=== PATIENT | male | born 1975 | race Two or more races ===

== ENCOUNTER 2024-09-04 21:59 | Emergency (ER) | payer SELFPAY ==
[2024-09-04 22:05] VITALS: BP 162/94; PULSE 108; TEMP 36.7; O2SAT 96; BMI 31.6
--- NOTE | 2024-09-04 22:20 | CT_ITS ---
[address] [address] Patient Name: FERNANDO PITTS MRN: [id number] date: 1975 Sex: M Assigned Patient Location: ER Current Patient Location: ER Accession/Order Number: [id number] Exam Date: 09/04/2024 22:45 Report Date: 09/04/2024 23:41 At the request of: FORREST FABIAN Procedure: CT abdomen pelvis wo con EXAMINATION:CT abdomen pelvis wo con INDICATION:LEFT SIDED ABD PAIN COMPARISON:04/26/2022 TECHNIQUE:Multiple thin section transaxial slices were acquired through the abdomen and pelvis without intravenous contrast. Coronal and sagittal reconstructed images were reviewed. Oral contrastWas not administered. FINDINGS: LOWER CHEST: The lower chest is unremarkable. LIVER: The liver is unremarkable. GALLBLADDER AND BILIARY SYSTEM: No obvious ductal dilation. There is cholelithiasis without pericholecystic edema or inflammation. SPLEEN: The spleen is unremarkable. PANCREAS: The pancreas is unremarkable. ADRENAL GLANDS: The adrenal glands are unremarkable. KIDNEYS AND URETERS: There is no hydronephrosis of the kidneys.There are punctate nonobstructive bilateral intrarenal calculi. The ureters are within normal limits without obstructing urologic calcifications. VASCULATURE: Vascularity is unremarkable. PERITONEUM/RETROPERITONEUM: Peritoneum/retroperitoneum is unremarkable. LYMPH NODES: No suspicious lymphadenopathy. GASTROINTESTINAL TRACT: The bowel is normal in caliber.There is chronic colonic diverticulosis of the colon without acute inflammation.The appendix is visualized and is not inflamed. BLADDER: The urinary bladder is unremarkable. REPRODUCTIVE SYSTEM: Reproductive system is unremarkable. BODY WALL: There is a tiny fat-containing umbilical hernia. BONES: Multilevel endplate degenerative disc disease is present in the lower thoracic and lumbar spine. CT/CT abdomen pelvis wo con IMPRESSION: 1. No acute inflammatory process or obstructive uropathy. 2. Cholelithiasis without pericholecystic edema. 3. Nonobstructive bilateral intrarenal calculi. Electronically authenticated by: FLORA INGRAM Date: 09/04/2024 23:41
[2024-09-04 22:36] LABS: Hematocrit 47.1 % (42.0-54.0); Hemoglobin 16.5 g/dL (14.0-18.0); Mean Corpuscular Hemoglobin 31.7 pg (25.9-34.0); Mean Corpuscular Volume 90.4 fL (80.0-94.0); Mean Platelet Volume 11.8 fL (9.5-13.5); Platelet Count 222 10^3/uL (150-450); Red Blood Count 5.21 10^6/uL (4.70-6.10); Red Cell Distribution Width 12.6 % (11.0-15.0); White Blood Count 18.2 10^3/uL (4.0-11.0)
[2024-09-04] MEDS: ONDANSETRON PF 4 MG/2 ML VIAL IV (22:36)
[2024-09-04] MEDS: 0.9 % SODIUM CHLORIDE 1,000 ML 1000 ML IV (22:36)
[2024-09-04 22:51] LABS: Atypical Lymphocytes Abs Man 0.18; Basophils Abs Manual 0.18 10^3/uL (0.00-0.10); Lymphocytes Absolute Manual 0.18 10^3/uL (1.20-3.80); Monocytes Absolute Manual 0.36 10^3/uL (0.30-0.80); Segmented Neut Absolute Manual 17.29 10^3/uL (1.4-6.5)
[2024-09-04 22:54] LABS: Alanine Aminotransferase 34 U/L (16-63); Albumin Globulin Ratio 1.1; Alkaline Phosphatase 73 U/L (46-116); Aspartate Amino Transferase 13 U/L (15-37); BUN Creatinine Ratio 14.4; Bilirubin Total 0.9 mg/dL (0.2-1.0); Calcium 9.1 mg/dL (8.5-10.1); Carbon Dioxide 25.1 mmol/L (21.0-32.0); Chloride 105 mmol/L (98-107); Estimated GFR (African America >60 (>=60 mL/min/1.73m^2); Estimated GFR (Non-African Ame >60 (>=60 mL/min/1.73m^2); Globulin 3.7 g/dL; Glucose 183 mg/dL (74-106); Potassium 4.1 mmol/L (3.5-5.1); Sodium 141 mmol/L (136-145); Total Protein 7.7 g/dL (6.4-8.2)
[2024-09-04 23:45] VITALS: BP 145/79; PULSE 90; O2SAT 94
[2024-09-04 23:56] LABS: Bilirubin Urine NEGATIVE (NEGATIVE); Blood Urine SMALL (NEGATIVE); Clarity Urine CLEAR (CLEAR); Color Urine YELLOW (YELLOW); Glucose Urine UA NEGATIVE (NEGATIVE); Ketones Urine NEGATIVE (NEGATIVE); Leukocyte Esterase Urine NEGATIVE (NEGATIVE); Nitrite Urine NEGATIVE (NEGATIVE); Protein Urine NEGATIVE (NEG/TRACE); Specific Gravity Urine >=1.030 (1.005-1.025); Urine Microscopic Indicated YES; Urobilinogen Urine 0.2 EU/dL (0.2-1.0)
[2024-09-05 00:04] LABS: Bacteria Urine NONE SEEN #/HPF (NONE SEEN); Mucus Urine SMALL (NONE SEEN); RBC Urine 0-2 #/HPF (0-2); Squamous Epithelial Cell Urine NONE SEEN #/LPF (NONE/RARE); WBC Urine 0-2 #/HPF (NONE SEEN)
[2024-09-05 00:05] LABS: Cast Seen? NONE SEEN #/LPF (NONE SEEN); Crystals Seen? None Seen #/HPF (None Seen); Urine Culture Indicated NO
--- NOTE | 2024-09-05 00:54 | ED.GENADUL1 ---
HPI HPI - General Adult General Chief complaint: Nausea/Vomiting/Diarrhea Stated complaint: Flu Time Seen by Provider: 09/04/24 22:14 Source: patient and family Mode of arrival: walk-in Limitations: language barrier History of Present Illness HPI narrative: Patient presents with chief complaint of vomiting and diarrhea today. He states he has vomited more than 5 times and has had diarrheal stools more than 5 times. He denies chills or fever. Related Data Previous Rx's ?Medication ?Instructions ?Recorded ondansetron 4 mg disintegrating 4 mg PO Q6H PRN nausea and 09/05/24 tablet vomiting #10 tabs Allergies Allergy/AdvReac Type Severity Reaction Status Date / Time No Known Drug Allergies Allergy Verified 09/04/24 22:09 Opioid HPI Opioid Management Most Recent Opioid Data: No Data to Display Review of Systems ROS Narrative All other systems are reviewed and are negative other than what is mentioned in the HPI. PFSH PFS Social History Little interest or pleasure in doing things: not at all Feeling down, depressed, or hopeless: not at all Exam Narrative Exam Narrative: Afebrile and nondistressed. Patient is not tachycardic or hypotensive. HEENT exam is normal to inspection. Neck is supple. Lung sounds are clear to auscultation bilaterally. Heart has regular rate and rhythm. Abdomen is soft with hypoactive bowel sounds and is nontender. There is no organomegaly. Speech and mentation are clear and intact. There is no facial asymmetry. Patient moves all extremities actively. Constitutional Vital Signs, click to edit/add: Last Vital Signs Temp 98.1 F 09/04/24 22:05 Pulse 90 09/04/24 23:45 Resp 16 09/04/24 23:45 BP 145/79 H 09/04/24 23:45 Pulse Ox 94 L 09/04/24 23:45 O2 Del Method Room Air 09/04/24 22:05 Course Vital Signs Vital signs: Vital Signs Temperature 98.1 F 09/04/24 22:05 Pulse Rate 108 H 09/04/24 22:05 Respiratory Rate 18 09/04/24 22:05 Blood Pressure 162/94 H 09/04/24 22:05 Pulse Oximetry 96 09/04/24 22:05 Oxygen Delivery Method Room Air 09/04/24 22:05 Temperature 98.1 F 09/04/24 22:05 Pulse Rate 90 09/04/24 23:45 Respiratory Rate 16 09/04/24 23:45 Blood Pressure 145/79 H 09/04/24 23:45 Pulse Oximetry 94 L 09/04/24 23:45 Oxygen Delivery Method Room Air 09/04/24 22:05 Medical Decision Making MDM Narrative Medical decision making narrative: Patient presents with vomiting and diarrhea suspected to be of viral etiology. Lab work does not show signs of dehydration. He did have leukocytosis which I feel is a stress response to his acute illness and not a sign of sepsis. CT scan of the abdomen pelvis was obtained which shows incidental findings of cholelithiasis and tiny bilateral intrarenal calculi. There is no evidence of inflammatory bowel disease or obstruction. Patient is treated with IV fluids and IV Zofran. He has not had any vomiting while in the ED. Upon discharge he is placed on Zofran for nausea and vomiting. He is to return anytime for worsening symptoms. Restricted diet is advised initially to be gradually advanced as tolerated. Differential Diagnosis Differential Diagnosis: Bowel obstruction, colitis, diverticulitis, kidney stone. Lab Data Labs: Lab Results 09/04/24 09/04/24 Range/Units 22:27 23:42 WBC 18.2 H (4.0-11.0) 10^3/uL RBC 5.21 (4.70-6.10) 10^6/uL Hgb 16.5 (14.0-18.0) g/dL Hct 47.1 (42.0-54.0) % MCV 90.4 (80.0-94.0) fL MCH 31.7 (25.9-34.0) pg MCHC 35.0 (29.9-35.2) g/dL RDW 12.6 (11.0-15.0) % Plt Count 222 (150-450) 10^3/uL MPV 11.8 (9.5-13.5) fL Seg Neuts % (Manual) 95.0 H (43.0-75.0) Lymphocytes % (Manual) 1.0 L (20.5-60.0) % Atypical Lymphs % (Man) 1.0 % Monocytes % (Manual) 2.0 (1.7-12.0) % Eosinophils % (Manual) 0.0 L (0.9-7.0) % Basophils % (Manual) 1.0 (0.2-2.0) % Neutrophils # (Manual) 17.29 H (1.4-6.5) 10^3/uL Lymphocytes # (Manual) 0.18 L (1.20-3.80) 10^3/uL Abs Atypical Lymphs Man 0.18 Monocytes # (Manual) 0.36 (0.30-0.80) 10^3/uL Eosinophils # (Manual) 0.00 (0.00-0.70) 10^3/uL Basophils # (Manual) 0.18 H (0.00-0.10) 10^3/uL Sodium 141 (136-145) mmol/L Potassium 4.1 (3.5-5.1) mmol/L Chloride 105 (98-107) mmol/L Carbon Dioxide 25.1 (21.0-32.0) mmol/L Anion Gap 15.0 BUN 17.0 (7.0-18.0) mg/dL Creatinine 1.18 (0.70-1.30) mg/dL Est GFR ( Amer) >60 (>=60 mL/min/1.73m^2) Est GFR (Non-Af Amer) >60 (>=60 mL/min/1.73m^2) BUN/Creatinine Ratio 14.4 Glucose 183 H (74-106) mg/dL Calcium 9.1 (8.5-10.1) mg/dL Total Bilirubin 0.9 (0.2-1.0) mg/dL AST 13 L (15-37) U/L ALT 34 (16-63) U/L Alkaline Phosphatase 73 (46-116) U/L Total Protein 7.7 (6.4-8.2) g/dL Albumin 4.0 (3.4-5.0) g/dL Globulin 3.7 g/dL Albumin/Globulin Ratio 1.1 Lipase 17.0 (16.0-77.0) U/L Urine Color Yellow (YELLOW) Urine Clarity Clear (CLEAR) Urine pH 6.0 (5.0-9.0) Ur Specific [place] >=1.030 A (1.005-1.025) Urine Protein Negative (NEG/TRACE) mg/dL Urine Glucose (UA) Negative (NEGATIVE) mg/dL Urine Ketones Negative (NEGATIVE) mg/dL Urine Occult Blood Small A (NEGATIVE) Urine Nitrite Negative (NEGATIVE) Urine Bilirubin Negative (NEGATIVE) Urine Urobilinogen 0.2 (0.2-1.0) EU/dL Ur Leukocyte Esterase Negative (NEGATIVE) Urine RBC 0-2 (0-2) #/HPF Urine WBC 0-2 A (NONE SEEN) #/HPF Ur Squamous Epith Cells None seen (NONE/RARE) #/LPF Urine Crystals None seen (None Seen) #/HPF Urine Bacteria None seen (NONE SEEN) #/HPF Urine Casts None seen (NONE SEEN) #/LPF Urine Mucus Small A (NONE SEEN) Ur Culture Indicated? No Discharge Plan Discharge Stand Alone Forms: Work/School Release Chief Complaint: Nausea/Vomiting/Diarrhea Clinical Impression: Gastroenteritis Patient Disposition: Home, Self-Care Time of Disposition Decision: 00:50 Condition: Good Mode of Transportation: Private Vehicle Prescriptions / Home Meds: New ondansetron 4 mg tablet,disintegrating 4 mg PO Q6H PRN (Reason: nausea and vomiting) Qty: 10 0RF Print Language: [place] Instructions: Gastroenteritis (ED) Additional Instructions: Liquid diet for 24 hours. After that advance diet as tolerated. Return anytime for worsening symptoms. Referrals: Physician,Non-Staff, MD [Primary Care Provider] - 1 week
== END 2024-09-05 01:05 | disposition home or self-care (01) ==
PROVIDERS: Emergency Provider Emergency Medicine
DX: K52.9 Noninfective gastroenteritis and colitis, unspecified (principal); K80.20 Calculus of gallbladder without cholecystitis without obstruction
CPT/HCPCS: 36415; 74176; 80053; 81001; 83690; 85007; 85027; 96361; 96374; 99284; J2405